=== PATIENT | male | born 1940 | race Caucasian/White ===

== ENCOUNTER → 2024-02-19 09:05 | Outpatient (REF) | payer OTHER, SELFPAY | LOC: RCS 09:05 | PROVIDERS: ATTENDING PHYSICIAN Nuclear Medicine Nuclear Cardiology; FAMILY PHYSICIAN Family Medicine | DX: Z95.2 Presence of prosthetic heart valve (principal); I10 Essential (primary) hypertension; I35.0 Nonrheumatic aortic (valve) stenosis | CPT/HCPCS: 93306 ==

== ENCOUNTER 2024-06-14 17:44 | Emergency (ER) | payer OTHER, SELFPAY ==
[2024-06-14 17:46] VITALS: BP 167/90
[2024-06-14 18:13] LABS: COVID-19 Antigen Negative (Negative)
--- NOTE | 2024-06-14 18:30 | ED.GENMED ---
History of Present Illness
General
Chief Complaint: Cold/Flu/URI Symptoms
Source: patient
Exam Limitations: none
Time Seen by Provider: 06/14/24 18:17
Nursing documentation reviewed up to this point in time: agreed with
History of Present Illness
History of Present Illness:
84-year-old male presenting to the emergency department today with concerns of upper respiratory symptoms over the past 3 days. He now has a worsening cough and increased sputum production. He is noted some discomfort with coughing only. Denies
significant shortness of breath denies nausea vomiting or fevers
Review of Systems
Review of Systems
Allergies reviewed?: Yes
All Other Systems: ROS reviewed and negative except as documented in HPI and ROS
Phy Exam
Physical Exam
Physical Exam:
GENERAL: Alert , in no apparent distress
EYE: pupils equal and reactive
NECK: Supple, no significant adenopathy.
ENT: o/p clr, mmm.
CARDIAC: Regular rate and rhythm .
LUNGS: Rhonchi right lower lung bowles otherwise remainder of the lungs clear breath sounds bilaterally, no acute respiratory distress,
ABDOMEN: Soft, without focal tenderness, no r/g, no cvat
NEUROLOGICAL: Alert and oriented, no focal neuro deficits
SKIN: Warm and dry, skin intact.
MUSCULOSKELETAL: No edema, well perfused.
PSYCH: Normal and appropriate interaction.
Course
Orders/Labs/Results
Orders:
Orders
06/14/24 17:48
CXR2 [CR Chest - 2 Views ] Urgent
Comment:
Reason For Exam: cough
06/14/24 17:51
COVID-19 Antigen Urgent
Source: Nasal Swab
Influenza A+B Rapid Molecular Urgent
MARGI Source: Nasal Swab
Specimen Description:
06/14/24 18:29
Amoxicillin 875 mg/Clav 125 mg [Augmentin 875 mg/125 mg] 1 tablet PO NOW STA
Azithromycin [Zithromax] 500 mg PO NOW STA
Vital Signs
Initial and Last Documented VS:
Initial Vital Signs
Temp Pulse Resp BP Pulse Ox
97.4 F 89 20 167/90 100
06/14/24 17:46 06/14/24 17:46 06/14/24 17:46 06/14/24 17:46 06/14/24 17:46
Last Documented Vital Signs
Temp Pulse Resp BP Pulse Ox
97.4 F 89 20 167/90 100
06/14/24 17:46 06/14/24 17:46 06/14/24 17:46 06/14/24 17:46 06/14/24 17:46
MDM/Problems Addressed
MDM/Problems Addressed:
84-year-old male presenting to the emergency department today with concerns of ongoing cough over the past 3 days. Afebrile here in no distress but does have rhonchi on right lower lobe. X-ray shows possible early consolidation. Plan to treat
with antibiotic otherwise stable for outpatient management. Return precautions given.
*Critical Care Note
Total Time (30-74mins, 75-104mins- exclusive of procedures): Not Applicable
ED Attending Note
-
Portions of this chart may have been created with voice recognition software.� Occasional wrong word or��sound alike� substitutions may have occurred due to the inherent limitations of voice recognition software.
Discharge Plan
Departure
Patient Disposition: Home (Routine Discharge)
Date of Disposition: 06/14/24
Time of Disposition: 18:32
Patient with high blood pressure during this ER visit?: No
Condition: Good
Covid-19: Not Applicable
Discharge Problem:
Pneumonia
Instructions: Pneumonia in adults
Prescriptions:
New
amoxicillin-pot clavulanate 875-125 mg tablet
1 tab PO BID 7 Days Qty: 14 0RF
azithromycin 500 mg tablet
500 mg PO DAILY 2 Days Qty: 2 0RF
No Action
atorvastatin [Lipitor] 40 MG tablet
40 mg PO DAILY
coenzyme V06-rvalina E 1 CAP capsule
1 cap PO DAILY
pomegrnt-green l-tqbld-rkwhwis [Eowbkpffmuf-TILR-Fwpqz Seed] 1 EACH capsule
600 mg PO DAILY
cholecalciferol (vitamin D3) [Vitamin D3] 2,000 UNIT capsule
2,000 unit PO DAILY
multivitamin with folic acid [Tab-A-Brunilda] 1 TABLET tablet
1 tab PO DAILY
L. acidophilus-L. rhamnosus [Probiotic] 1 EACH capsule
15 b PO DAILY
fpeqtnff-vxaeu-afc-boron-hyal [Glucosamine-Chondr (MSM-hyal)] 1 EACH tablet
180 mg PO DAILY
metformin 500 MG tablet extended release 24 hr
500 mg PO BID Qty: 0 0RF
Rx Instructions:
Resume on sat am
aspirin 81 MG tablet,delayed release (DR/EC)
81 mg PO DAILY
acetaminophen 325 MG tablet
650 mg PO Q6HPRN PRN (Reason: mild pain) 0RF
clopidogrel 75 MG tablet
75 mg PO DAILY Qty: 90 1RF
docusate sodium 100 MG capsule
100 mg PO BID Qty: 20 0RF
lisinopril 5 MG tablet
5 mg PO DAILY Qty: 30 1RF
metoprolol succinate [Toprol XL] 25 MG tablet extended release 24 hr
25 mg PO DAILY Qty: 30 1RF
Activity Restrictions/Additional Instructions:
You came to the emergency department today with concerns of pneumonia. Please take the prescribed antibiotic and return for any worsening, new or concerning symptoms.
Interventions
Interventions:
*Risk Screen - Suicide Last Done: 06/14/24 17:46
*Neglect/Abuse Screening Last Done: 06/14/24 17:46
Discharge Date and Time
Print Language: TAMAZIGHT
[2024-06-14] MEDS: AUGMENTIN 875 MG/125 MG 1 TABLET PO (18:49)
[2024-06-14] MEDS: ZITHROMAX 500 MG PO (18:49)
[2024-06-14 18:51] VITALS: BP 153/74
== END 2024-06-14 19:16 | disposition home or self-care (01) ==
LOC: EMR 17:44
PROVIDERS: Emergency Medicine; EMERGENCY PHYSICIAN Emergency Medicine; FAMILY PHYSICIAN Dentist
DX: J18.9 Pneumonia, unspecified organism (principal); Z11.52 Encounter for screening for COVID-19
CPT/HCPCS: 99284; 71046; 87502; 87811

== ENCOUNTER → 2025-02-19 10:13 | Outpatient (REF) | payer OTHER, SELFPAY | LOC: RCS 10:13 | PROVIDERS: ATTENDING PHYSICIAN Nuclear Medicine Nuclear Cardiology; FAMILY PHYSICIAN Family Medicine | DX: I35.0 Nonrheumatic aortic (valve) stenosis (principal); Z95.2 Presence of prosthetic heart valve; I10 Essential (primary) hypertension | CPT/HCPCS: 93306 ==